=== PATIENT | male | born 1975 | race Caucasian/White ===

== ENCOUNTER 2018-06-02 19:02 | Emergency (ER) | payer SELFPAY ==
[~2018-06-02] VITALS: Ht 175.3 cm; Wt 76.4 kg
[~2018-06-02 19:02] MED LIST: ADDERALL20 MG PO; ATIVAN 0.50.5 MG/TAB PO; BUSPAR5 MG PO; CATAPRES 0.1MG0.1 MG PO; DAZIDOX10 MG PO; DESYREL 50MG50 MG PO; GLUCOPHAGE500 MG/TAB PO; GLUCOTROL 5M5 MG/TAB PO; HUMALOG100 U/ML SQ; LANTUS100 U/ML SQ; PAXIL 20MG20 MG PO; PHENERGAN 25 TA25 MG PO; PHENERGAN25 MG RC; PROSCAR 5MG5 MG PO; ROXICODONE 55 MG/TAB PO; WELLBUTRIN 75MG75 MG PO; [UNRECOGNIZED DRUG - OTHER] PO
[2018-06-02 19:07] VITALS: TEMP 98.7
[2018-06-02 20:04] LABS: BASO % 0.5 % (0.0-2.0); EOS % 0.6 % (0-4.0); GRAN # 3.3 (1.4-6.5); GRAN % 50.1 % (42.2-75.2); HEMOGLOBIN 14.8 g/dl (13.5-18.0); LYMPH # 2.8 (1.2-3.4); LYMPH % 42.1 % (20.0-51.0); MEAN CELL VOLUME 87 fl (80.0-100.0); MEAN CORPUSCULAR HEMOGLOBIN 32 pg (27.0-31.0); MEAN CORPUSCULAR HGB CONC 37 g/dl (33.0-37.0); MEAN PLATELET VOLUME 10.2 fl (7.4-10.4); MONO # 0.4 (0.1-0.6); MONO % 6.2 % (1.7-9.3); PLATELET COUNT 231 K/mm3 (130-400); RED BLOOD COUNT 4.61 M/mm3 (4.20-5.60); REDCELL DISTRIBUTION WIDTH-CV 12.6 % (11.5-14.5)
[2018-06-02] MEDS ORDERED: EFFE25TA PO (20:12)
[2018-06-02 20:13] LABS: ALANINE AMINOTRANSFERASE 45 U/L (21-72); ALBUMIN 4.6 gm/dL (3.5-5.0); ALCOHOL(ethanol),MEDICAL 250 mg/dL; ALKALINE PHOSPHATASE 109 U/L (50-136); ANION GAP 20 mmol/L (7-16); AST,SGOT 35 U/L (15-37); BILIRUBIN,TOTAL 0.3 mg/dL (0.0-1.0); BLOOD UREA NITROGEN 12 mg/dL (9-20); CALCIUM 8.8 mg/dL (8.4-10.2); CARBON DIOXIDE 20 mmol/L (22-30); CHLORIDE 98 mmol/L (98-107); CREATININE, serum 0.76 mg/dL (0.66-1.25); GLUCOSE 372 mg/dL (74-106); POTASSIUM 4.2 mmol/L (3.4-5.0); SODIUM 138 mmol/L (137-145)
[2018-06-02] MEDS ORDERED: AVODART 0.5MG0.5 MG PO (20:13)
[2018-06-02] MEDS ORDERED: ZOFRAN ODT4 MG PO (20:16)
[2018-06-02 20:17] LABS: TRICYCLIC ANTIDEPRESS URINE NEGATIVE
[2018-06-02 20:18] LABS: ACETAMINOPHEN < 10 ug/mL (10-30); SALICYLATE < 1.0 mg/dL
[2018-06-03 00:16] LABS: ACETONE,SERUM NEGATIVE
[2018-06-03 00:26] LABS: ALCOHOL(ethanol),MEDICAL 102 mg/dL; ANION GAP 14 mmol/L (7-16); BLOOD UREA NITROGEN 10 mg/dL (9-20); CALCIUM 8.1 mg/dL (8.4-10.2); CARBON DIOXIDE 23 mmol/L (22-30); CHLORIDE 100 mmol/L (98-107); CREATININE, serum 0.68 mg/dL (0.66-1.25); GLUCOSE 250 mg/dL (74-106); POTASSIUM 3.9 mmol/L (3.4-5.0); SODIUM 138 mmol/L (137-145)
[2018-06-03 16:41] VITALS: BP 159/99; PULSE 80
== END 2018-06-03 17:13 ==
LOC: COL.ER 19:02
PROVIDERS: Emergency Medicine
DX: R45.851 Suicidal ideations (principal); F10.129 Alcohol abuse with intoxication, unspecified; E11.65 Type 2 diabetes mellitus with hyperglycemia; Z79.4 Long term (current) use of insulin
CPT/HCPCS: J1815; J7030